=== PATIENT | male | born 1955 | race Caucasian/White ===

== ENCOUNTER 2017-08-02 10:28 | Outpatient (CLI) | payer BC ==
[2017-08-02 16:31] LABS: eGFR (African) > 60; eGFR (Non-African) > 60
== END 2017-08-02 10:30 ==
LOC: LAB 10:28
PROVIDERS: ATTEND Family Medicine
DX: I10 Essential (primary) hypertension (principal); R73.9 Hyperglycemia, unspecified; G40.409 Other generalized epilepsy and epileptic syndromes, not intractable, without status epilepticus
CPT/HCPCS: 36415; 80053; 80061; 80185; 80188; 83036

== ENCOUNTER 2019-01-16 09:54 | Outpatient (CLI) | payer MEDICARE, OTHER ==
[2019-01-16 11:06] LABS: eGFR (Non-African) > 60
== END 2019-01-16 09:55 ==
LOC: LAB 09:54
PROVIDERS: ATTEND Family Medicine
DX: I10 Essential (primary) hypertension (principal); R73.9 Hyperglycemia, unspecified; G40.409 Other generalized epilepsy and epileptic syndromes, not intractable, without status epilepticus; R60.9 Edema, unspecified; N52.9 Male erectile dysfunction, unspecified
CPT/HCPCS: 36415; 80053; 80061; 80185; 80188; 83036; 84403